=== PATIENT | male | born 1980 | race Caucasian/White ===

== ENCOUNTER → 2020-03-14 | Day surgery (SDC) | payer OTHER ==
[~2020-03-14] VITALS: Ht 182.9 cm; Wt 104.3 kg
[~2020-03-14] MED LIST: CYCLOBENZAPRINE10 MG PO; GABAPENTIN300 MG PO; HYDROCODON-ACE1 EAC4 PO; LEVOTHYROXINE25 MCG PO; OMEGA 3 1,0001 EACH PO; TURMERIC CURCUMIN PO
[2020-03-14 06:51] LABS: HEMOGLOBIN 15.2 gm/dl (14.0-17.5); RED BLOOD COUNT 5.22 M/UL (4.20-5.50); WHITE BLOOD COUNT 7.1 K/UL (4.5-11.0)
[2020-03-14 07:06] LABS: BUN/CREATININE RATIO 12 (0-10)
== END | disposition home or self-care (01) ==
LOC: OR 01-27 08:45
PROVIDERS: Orthopaedic Surgery
DX: G56.03 Carpal tunnel syndrome, bilateral upper limbs (principal); Z79.899 Other long term (current) drug therapy
CPT/HCPCS: 80048; 85025; J1100; J2001; J2250; J2405; J2704; J2765; J3010; J7120